=== PATIENT | female | born 1985 | race African-American/Black ===

== ENCOUNTER 2021-03-16 23:34 | Emergency (ER) | payer OTHER ==
[~2021-03-16] VITALS: Ht 167.6 cm; Wt 76.7 kg
== END 2021-03-17 03:08 | disposition home or self-care (01) ==
LOC: ER 03-17 00:32
DX: U07.1 COVID-19 (principal); R50.9 Fever, unspecified; R05.9 Cough, unspecified; R06.00 Dyspnea, unspecified; Z86.711 Personal history of pulmonary embolism
CPT/HCPCS: 71045; 99283; U0002